=== PATIENT | male | born 1965 | race Caucasian/White ===

== ENCOUNTER → 2021-02-15 | Outpatient (CLI) | payer BC ==
[2021-02-15 18:25] LABS: HEMOGLOBIN 15.1 gm/dl (14.0-17.5); RED BLOOD COUNT 5.19 M/UL (4.20-5.50); WHITE BLOOD COUNT 5.3 K/UL (4.5-11.0)
[2021-02-15 19:08] LABS: BUN/CREATININE RATIO 19 (0-10)
[2021-02-17 10:13] LABS: CREATININE, URINE 39.3 mg/dL (Not Estab.)
== END ==
LOC: LAB 16:58
PROVIDERS: Family Medicine
DX: Z00.00 Encounter for general adult medical examination without abnormal findings (principal); Z12.5 Encounter for screening for malignant neoplasm of prostate
CPT/HCPCS: 36415; 80053; 80061; 82043; 82570; 84153; 85027

== ENCOUNTER → 2021-04-13 | Outpatient (CLI) | payer BC | LOC: DTC 11:01 | DX: E11.65 Type 2 diabetes mellitus with hyperglycemia (principal); Z71.3 Dietary counseling and surveillance | CPT/HCPCS: G0108 ==

== ENCOUNTER → 2021-08-05 | Outpatient (CLI) | payer BC ==
[2021-08-05 14:19] LABS: BUN/CREATININE RATIO 23 (0-10)
[2021-08-08 11:17] LABS: CREATININE, URINE 94.8 mg/dL (Not Estab.)
== END ==
LOC: LAB 13:21
PROVIDERS: Family Medicine
DX: E78.5 Hyperlipidemia, unspecified (principal); E11.9 Type 2 diabetes mellitus without complications
CPT/HCPCS: 36415; 80053; 80061; 82043; 82570; 83036